=== PATIENT | female | born 1980 | race American Indian/Alaskan Native ===

== ENCOUNTER 2019-01-21 16:40 | Inpatient (IN) | payer OTHER ==
[2019-01-21] MEDS ORDERED: DUONEB *Not for PRN Use IH ONE (16:49)
--- NOTE | 2019-01-21 16:52 | Emergency Department Report ---
ED Shortness of Breath HPI - General Stated Complaint: ASTHMA Time Seen by Provider: 01/21/19 16:47 Source: patient, EMS Mode of arrival: Stretcher Limitations: No Limitations - History of Present Illness Initial Comments: Patient is a 38-year-old female that presents emergency room with complaints of asthma attack and difficult breathing and shortness of breath. Patient is bro ught in by EMS. Patient states her symptoms started yesterday but about 2 hours ago he became worse and states she is not able to breathe. Patient states her symptoms have improved since EMS giving her medications. Patient states she still having some shortness of breath and difficulty catching her breath. Patient states she still coughing and having wheezing. Patient states her cough is dry. Patient states she has had a history of asthma. Patient denies fever or chills. Denies chest pain. Report received from EMS. EMS states they gave her Medrol, albuterol and magnesium run. MD Complaint: shortness of breath, cough, "asthma attack" -: Sudden Severity: severe Consistency: constant Improves With: oxygen, rest, bronchodilators, medication Worsens With: exertion Known History Of: asthma Associated Symptoms: cough Treatments Prior to Arrival: oxygen, bronchodilator, other - Related Data Home Oxygen Therapy: No Home Medications Medication Instructions Recorded Confirmed Last Taken ALBUTEROL Inhaler (OR & NICU) 8.5 gram INHALATION PRN PRN 01/21/19 01/21/19 01/21/19 [ProAir HFA Inhaler] Bupropion HCl [Wellbutrin XL] 300 mg PO QHS 01/21/19 01/21/19 01/20/19 Escitalopram Oxalate [Lexapro] 20 mg PO QHS 01/21/19 01/21/19 01/20/19 traZODone [Desyrel] 200 mg PO QHS 01/21/19 01/21/19 01/20/19 Allergies Allergy/AdvReac Type Severity Reaction Status Date / Time No Known Allergies Allergy Unverified 01/21/19 17:03 ED Review of Systems ROS: Stated complaint: ASTHMA Other details as noted in HPI Constitutional: denies: chills, fever Eyes: denies: eye pain, eye discharge, vision change ENT: denies: ear pain, throat pain Respiratory: see HPI, cough, shortness of breath, SOB with exertion, SOB at rest, wheezing Cardiovascular: denies: chest pain, palpitations Endocrine: no symptoms reported Gastrointestinal: denies: abdominal pain, nausea, diarrhea Genitourinary: denies: urgency, dysuria, discharge Musculoskeletal: denies: back pain, joint swelling, arthralgia Skin: denies: rash, lesions Neurological: denies: headache, weakness, paresthesias Psychiatric: denies: anxiety, depression Hematological/Lymphatic: denies: easy bleeding, easy bruising ED Past Medical Hx - Past Medical History Previous Medical History?: Yes Hx Asthma: Yes - Surgical History Past Surgical History?: No - Family History Family history: no significant - Social History Smoking Status: Never Smoker Substance Use Type: None - Medications Home Medications: Home Medications Medication Instructions Recorded Confirmed Last Taken Type ALBUTEROL Inhaler (OR & NICU) 8.5 gram INHALATION PRN PRN 01/21/19 01/21/19 01/21/19 History [ProAir HFA Inhaler] Bupropion HCl [Wellbutrin XL] 300 mg PO QHS 01/21/19 01/21/19 01/20/19 History Escitalopram Oxalate [Lexapro] 20 mg PO QHS 01/21/19 01/21/19 01/20/19 History traZODone [Desyrel] 200 mg PO QHS 01/21/19 01/21/19 01/20/19 History ED Physical Exam - General Limitations: No Limitations General appearance: alert, in distress - Head Head exam: Present: atraumatic, normocephalic - Eye Eye exam: Present: normal appearance, PERRL Pupils: Present: normal accommodation - ENT ENT exam: Present: mucous membranes moist - Neck Neck exam: Present: normal inspection - Respiratory Respiratory exam: Present: respiratory distress, wheezes - Cardiovascular Cardiovascular Exam: Present: regular rate, normal rhythm. Absent: systolic murmur, diastolic murmur, rubs, gallop - GI/Abdominal GI/Abdominal exam: Present: soft, normal bowel sounds. Absent: distended, tenderness, guarding - Extremities Exam Extremities exam: Present: normal inspection - Back Exam Back exam: Present: normal inspection - Neurological Exam Neurological exam: Present: alert, oriented X3 - Psychiatric Psychiatric exam: Present: normal affect, normal mood - Skin Skin exam: Present: warm, dry, intact, normal color. Absent: rash ED Course Vital Signs 0701/21/19 01/21/19 17:00 17:06 17:17 Temperature 98.5 F Pulse Rate 103 H Pulse Rate [ 97 H 100 H Anterior] Respiratory 22 Rate Respiratory 19 19 Rate [Anterior] Blood Pressure 153/89 O2 Sat by Pulse 97 Oximetry 01/21/19 01/21/19 17:24 18:25 Temperature Pulse Rate Pulse Rate [ Anterior] Respiratory 22 Rate Respiratory Rate [Anterior] Blood Pressure O2 Sat by Pulse 94 Oximetry - Reevaluation(s) Reevaluation #1: Initial evaluation done. Patient will be given a DuoNeb. 01/21/19 16:45 Reevaluation #2: lungs reassessed. lungs sounds better. Patient off O2 for 20 minutes and O2 saturations 90%. Patient placed on 4 L and her current 2 saturation is 94%. Patient will be admitted to the hospitalist service. I discussed plan of care with patient. Patient agrees with plan of care. I discussed all results with patient. 01/21/19 18:22 - Consultations Consultation #1: Hospitalist consult for admission. Hospitalist to admit patient. 01/21/19 18:25 ED Medical Decision Making - Lab Data Result diagrams: 01/21/19 16:58 01/21/19 16:58 - EKG Data -: EKG Interpreted by Tn EKG shows normal: sinus rhythm, axis, intervals, QRS complexes, ST-T waves Rate: normal - Radiology Data Radiology results: report reviewed, image reviewed CHEST 1 VIEW INDICATION / CLINICAL INFORMATION: Dyspnea. Chest pain. COMPARISON: None available. FINDINGS: SUPPORT DEVICES: None. HEART / MEDIASTINUM: No significant abnormality. LUNGS / PLEURA: No significant pulmonary or pleural abnormality. No pneumothorax. ADDITIONAL FINDINGS: No significant additional findings. IMPRESSION: 1. No acute findings. - Medical Decision Making Patient is 38-year-old presents with complaints of shortness of breath and difficulty breathing. Patient found to be in status asthmaticus. Patient given multiple medications prior to arrival by EMS. Patient was given magnesium, Solu-Medrol and albuterol. Patient's DuoNeb was repeated in the ER. Patient and her lung sounds but still hypoxic. Patient found to have a oxygen saturation of 90% on room air. Patient on 4 L increased to 94. Patient admitted to the hospitalist service. Patient will require observation due to her clinical findings. Patient's labs are unremarkable. Patient's chest x-ray EKG is normal. - Differential Diagnosis status asthmaticus. Wheezing. Shortness of breath. Respiratory distress. Critical Care Time: Yes Critical care attestation.: If time is entered above; I have spent that time in minutes in the direct care of this critically ill patient, excluding procedure time. Critical Care Time: 45 minutes ED Disposition Clinical Impression: SOB (shortness of breath), Hypoxia, Difficulty breathing Status asthmaticus Qualifiers: Asthma severity: severe Asthma persistence: persistent Qualified Code(s): J45.52 - Severe persistent asthma with status asthmaticus Disposition: 09 OP ADMIT IP TO THIS HOSP Is pt being admited?: Yes Does the pt Need Aspirin: No Condition: Critical Time of Disposition: 18:23
[2019-01-21 17:22] LABS: Basophils % (Auto) 0.4 % (0.0-1.8); Eosinophils # (Auto) 0.6 K/mm3 (0.0-0.4); Eosinophils % (Auto) 5.4 % (0.0-4.3); Hemoglobin 13.4 gm/dl (10.1-14.3); Lymphocytes # (Auto) 1.6 K/mm3 (1.2-5.4); Lymphocytes % (Auto) 13.6 % (13.4-35.0); Mean Corpuscular HGB Conc 34 % (30-34); Mean Corpuscular Volume 91 fl (79-97); Monocytes # (Auto) 1.2 K/mm3 (0.0-0.8); Monocytes % (Auto) 9.9 % (0.0-7.3); Platelet Count 197 K/mm3 (140-440); Red Blood Count 4.39 M/mm3 (3.65-5.03); Red Cell Distribution Width 14.1 % (13.2-15.2)
[2019-01-21 18:05] LABS: Alanine Aminotransferase 19 units/L (7-56); BUN/Creatinine Ratio 11; Blood Urea Nitrogen 10 mg/dL (7-17); Calcium 8.5 mg/dL (8.4-10.2); Hemolysis Index 5
--- NOTE | 2019-01-21 18:20 | XRay Report ---
CHEST 1 VIEW INDICATION / CLINICAL INFORMATION: Dyspnea. Chest pain. COMPARISON: None available. FINDINGS: SUPPORT DEVICES: None. HEART / MEDIASTINUM: No significant abnormality. LUNGS / PLEURA: No significant pulmonary or pleural abnormality. No pneumothorax. ADDITIONAL FINDINGS: No significant additional findings. IMPRESSION: 1. No acute findings. Signer Name: Merlin Fisher MD Signed: 01/21/2019 6:16 PM Workstation Name: [id number]
[2019-01-21] MEDS ORDERED: ZOFRAN IV PRN (18:26)
[2019-01-21] MEDS ORDERED: SODIUM CHLORIDE FLUSH SYRINGE 10 ML IV PRN (18:26)
[2019-01-21] MEDS ORDERED: PROVENTIL IH PRN (18:26)
--- NOTE | 2019-01-21 18:29 | History and Physical Report ---
History of Present Illness Chief complaint: I cant breathe History of present illness: 38 YO Female with Asthma presents to ED for evaluation. Pt is unable to speak in complete sentences. Pt has experienced shortness of breath over the past 2 days with worsening symptoms over the past 1 day. Pt acknowledges increased nebulizer use without relief. EMS notified and upon arrival the patient was found to be in distress and placed on supplemental oxygen and transported to [facility]. Pt seen and evaluated in ED and found to have Status Asthmaticus as well as Acute Hypoxemic Respiratory Failure and treated with NIPPV, nebulizer therapy, and IV steroid therapy with mild improvement in symptoms. Pt admitted to medical floor. Pt denies fever, chills, CP, Palpitations, NVD, Trauma, BRBPR, Productive Cough, Skin Rash, Unintentional weight loss, night sweats. No prior admissions for review. No medication listed for reconciliation at time of admission. Past History Past Medical History: other (Asthma) Past Surgical History: No surgical history, Other (reviewed) Social history: single. denies: smoking, alcohol abuse, prescription drug abuse Family history: no significant family history (reviewed) Medications and Allergies Allergies Allergy/AdvReac Type Severity Reaction Status Date / Time No Known Allergies Allergy Unverified 01/21/19 17:03 Home Medications Medication Instructions Recorded Confirmed Last Taken Type ALBUTEROL Inhaler (OR & NICU) 01/21/19 01/21/19 History [ProAir HFA Inhaler] Bupropion HCl [Wellbutrin XL] 01/21/19 01/20/19 History Escitalopram Oxalate [Lexapro] 20 mg PO 01/21/19 01/20/19 History traZODone [Desyrel] 200 mg PO QHS 01/21/19 01/21/19 01/20/19 History Active Meds: Active Medications Acetaminophen (Tylenol) 650 mg PO Q4H PRN PRN Reason: Pain MILD(1-3)/Fever >100.5/ANGEL Albuterol (Proventil) 2.5 mg IH Q4HRT PRN PRN Reason: Shortness Of Breath Famotidine (Pepcid) 10 mg PO BID ROSS Azithromycin 500 mg/ Sodium (Chloride) 250 mls @ 250 mls/hr IV Q24HR ROSS; Protocol Methylprednisolone Sodium Succinate (Solu-Medrol) 40 mg IV Q8HR ROSS Ondansetron HCl (Zofran) 4 mg IV Q8H PRN PRN Reason: Nausea And Vomiting Sodium Chloride (Sodium Chloride Flush Syringe 10 Ml) 10 ml IV BID [facility] Sodium Chloride (Sodium Chloride Flush Syringe 10 Ml) 10 ml IV PRN PRN PRN Reason: LINE FLUSH Review of Systems Constitutional: no weight loss, no weight gain, no fever, no chills Ears, nose, mouth and throat: no ear pain, no ear discharge, no tinnitis, no decreased hearing, no nose pain Breasts: no change in shape, no swelling, no mass Cardiovascular: no chest pain, no orthopnea, no palpitations, no rapid/irregular heart beat, no edema Respiratory: shortness of breath, wheezing, no cough, no cough with sputum, no excessive sputum Gastrointestinal: no nausea, no vomiting, no diarrhea, no constipation Genitourinary Female: no pelvic pain, no flank pain Rectal: no pain, no incontinence, no bleeding Musculoskeletal: no neck stiffness, no neck pain, no shooting arm pain Integumentary: no rash, no pruritis, no redness, no sores, no wounds, no jaundice Neurological: no paralysis, no weakness, no parathesias, no numbness, no tingling Psychiatric: no anxiety, no memory loss, no change in sleep habits, no sleep disturbances, no insomnia, no hypersomnia Endocrine: no cold intolerance, no heat intolerance, no polyphagia, no excessive thirst, no polydipsia, no polyuria, no nocturia Hematologic/Lymphatic: no easy bruising, no easy bleeding Allergic/Immunologic: no urticaria, no allergic rhinitis, no wheezing Exam - Constitutional Vitals: Temp Pulse Resp BP Pulse Ox 98.5 F 100 H 22 153/89 97 01/21/19 17:00 01/21/19 17:17 01/21/19 17:24 01/21/19 17:00 01/21/19 17:00 General appearance: Present: mild distress - EENT Eyes: Present: PERRL ENT: hearing intact, clear oral mucosa - Neck Neck: Present: supple, normal ROM - Respiratory Respiratory effort: labored Respiratory: bilateral: diminished, wheezing - Cardiovascular Heart Sounds: Present: S1 & S2. Absent: rub, click - Extremities Extremities: pulses symmetrical, No edema Peripheral Pulses: within normal limits - Abdominal General gastrointestinal: Present: soft, non-tender, non-distended, normal bowel sounds Female genitourinary: Present: normal - Integumentary Integumentary: Present: clear, warm, dry - Musculoskeletal Musculoskeletal: gait normal, strength equal bilaterally - Psychiatric Psychiatric: agitated - Neurologic Neurologic: CNII-XII intact, moves all extremities Results - Labs CBC & Chem 7: 01/21/19 16:58 01/21/19 16:58 Labs: Abnormal lab results 01/21/19 01/21/19 Range/Units 16:58 16:58 WBC 11.9 H (4.5-11.0) K/mm3 [place] % (Auto) 9.9 H (0.0-7.3) % Eos % (Auto) 5.4 H (0.0-4.3) % Harris # 1.2 H (0.0-0.8) K/mm3 Eos # 0.6 H (0.0-0.4) K/mm3 Seg Neutrophils % 70.7 H (40.0-70.0) % Seg Neutrophils # 8.4 H (1.8-7.7) K/mm3 Chloride 109.4 H (98-107) mmol/L Glucose 125 H (65-100) mg/dL Assessment and Plan - Patient Problems (1) Respiratory failure Current Visit: Yes Status: Acute Qualifiers: Chronicity: acute Respiratory failure complication: hypoxia Qualified Code(s): J96.01 - Acute respiratory failure with hypoxia Plan to address problem: Chest x ray, ABG, supplemental oxygen, NIPPV as clinically indicated, CBC, CMP, pulse oximetry, (2) Status asthmaticus Current Visit: No Status: Acute Qualifiers: Asthma severity: severe Asthma persistence: persistent Qualified Code(s): J45.52 - Severe persistent asthma with status asthmaticus Plan to address problem: Nebulizer therapy, IV steroid therapy, IV antibiotic therapy, Iv magnesium therapy, (3) DVT prophylaxis Current Visit: Yes Status: Acute Plan to address problem: SCD to BLE while in bed. prophylactic lovenox
[2019-01-21] MEDS ORDERED: MAGNESIUM SULFATE 2GM/50ML 2 GM/50 ML BAG IV ONE (18:30)
[2019-01-21] MEDS ORDERED: SOLU-Medrol IV ONE (18:31)
[2019-01-21] MEDS: ZITHROMAX 500 MG in NACL 0.9% 250ML 250 ML IV SCH (19:30)
--- NOTE | 2019-01-21 19:37 | Cat Scan Report ---
CTA CHEST WITH IV CONTRAST, 01/21/2019 INDICATION: Chest pain. Shortness of breath. TECHNIQUE: Axial CT images were obtained through the chest after injection of IV contrast. Coronal oblique 2-D reconstruction images were produced. 3 plane MIP reconstruction images were produced at an [employer] workstation. All CTs at this facility utilize dose reduction techniques including automated expos ure control, iterative reconstruction and weight based dosing when appropriate to reduce patient radi ation dose to as low as reasonable achievable. COMPARISON: Chest radiograph, 01/21/2019 FINDINGS: Evaluation of the pulmonary arteries demonstrates no evidence of central or segmental filling defects to suggest pulmonary embolism. The heart is normal in size. Evaluation of the lung parenchyma shows no evidence of focal airspace disease or pleural effusion. Limited imaging of the upper abdomen demonstrates no evidence of acute intra-abdominal process. There has been previous cholecystectomy. Evaluation of bony structures demonstrates no evidence of acute bony abnormality. IMPRESSION: 1. No evidence of pulmonary embolism or acute parenchymal process. Signer Name: Barbie Ramirez MD Signed: 01/21/2019 7:32 PM Workstation Name: [id number]
[2019-01-21 20:50] LABS: Amphetamine Screen,Urine PRESUMPTIVE NEGATIVE; Benzodiazepines Screen,Urine PRESUMPTIVE NEGATIVE; Cannabinoid Screen,Urine PRESUMPTIVE NEGATIVE; Methadone Screen,Urine PRESUMPTIVE NEGATIVE; Opiate Screen,Urine PRESUMPTIVE NEGATIVE
[2019-01-21 21:16] LABS: Cocaine Screen,Urine PRESUMPTIVE POSITIVE
[2019-01-21] MEDS: SODIUM CHLORIDE FLUSH SYRINGE 10 ML IV SCH (23:28)
[2019-01-21] MEDS: DESYREL PO SCH (23:28)
[2019-01-21] MEDS: PEPCID PO SCH (23:28)
[2019-01-21] MEDS: LOVENOX SUB-Q SCH (23:28)
[2019-01-21] MEDS: SOLU-Medrol IV SCH (23:29)
[2019-01-22] MEDS ORDERED: WELLBUTRIN XL PO SCH (02:59)
[2019-01-22] MEDS: SOLU-Medrol IV SCH ×3 (05:20→21:09)
[2019-01-22] MEDS: TYLENOL PO PRN ×2 (05:20→13:43)
[2019-01-22 06:51] LABS: Hemoglobin 13.6 gm/dl (10.1-14.3); Mean Corpuscular HGB Conc 32 % (30-34); Mean Corpuscular Volume 92 fl (79-97); Platelet Count 260 K/mm3 (140-440); Red Blood Count 4.58 M/mm3 (3.65-5.03); Red Cell Distribution Width 14.3 % (13.2-15.2)
[2019-01-22 07:15] LABS: Alanine Aminotransferase 23 units/L (7-56); Albumin 4.2 g/dL (3.9-5); BUN/Creatinine Ratio 10; Blood Urea Nitrogen 9 mg/dL (7-17); Calcium 8.8 mg/dL (8.4-10.2); Hemolysis Index 18
[2019-01-22] MEDS ORDERED: PROAIR IH PRN (07:45)
[2019-01-22 08:29] LABS: Basophils % (Manual) 0 % (0.0-1.8); Eosinophils % (Manual) 0 % (0.0-4.3); Total Cells Counted 100
[2019-01-22 08:30] LABS: Platelet Estimate Consistent w Auto; RBC Morphology Normal
--- NOTE | 2019-01-22 09:01 | Progress Note ---
Assessment and Plan /Acute hypoxic Respiratory failure Due to acute asthma exacerbation Continue supplemental oxygen, scheduled nebs, steroids, NIPPV as clinically indicated, / Status asthmaticus Nebulizer therapy, IV steroid therapy, IV antibiotic therapy, Iv magnesium therapy, / History of depression Continue Wellbutrin and Lexapro home dose /Substance abuse, UDS +ve for cocaine, counselled /DVT prophylaxis SCD to BLE while in bed. prophylactic lovenox Brief history: 38 YO Female with Asthma presents to ED by EMS for evaluation of shortness of breath over the past 2 days. Pt acknowledges increased nebulizer use without relief. EMS notified and upon arrival the patient was found to be in distress and placed on supplemental oxygen and transported to [facility]. Pt seen and evaluated in ED and found to have Status Asthmaticus as well as Acute Hypoxemic Respiratory Failure and treated with NIPPV, nebulizer therapy, and IV steroid therapy with mild improvement in symptoms. Pt admitted to medical floor. Physical exam: GENERAL: well-developed and well-nourished female lying on bed appeared to be in no discomfort. HEENT: Normocephalic. Atraumatic. No conjunctival congestion or icterus. Patient has moist mucous membranes. NECK: Supple. Trachea midline. CHEST/LUNGS: Diffuse wheezes auscultated bilaterally, breathing nonlabored. No crackles or rhonchi. HEART/CARDIOVASCULAR: Regular in rate and rhythm. S1 and S2 positive. ABDOMEN: Abdomen is soft, nontender. Patient has normal bowel sounds. SKIN: There is no rash. Warm and dry. NEURO: No focal motor deficit. Follows command. MUSCULOSKELETAL: No joint effusion or tenderness. EXTRIMITY: No edema, no cyanosis or clubbing. PSYCH: Cooperative. Subjective Date of service: 01/22/19 Objective - Constitutional Vitals: Vital Signs - 12hr 01/22/19 01/22/19 01/22/19 03:04 03:08 05:04 Temperature 97.5 F L Pulse Rate 90 Pulse Rate [ 95 H Anterior] Respiratory 28 H Rate Respiratory 20 Rate [Anterior] Blood Pressure 122/85 [Right] O2 Sat by Pulse 98 100 Oximetry - Labs CBC & Chem 7: 01/22/19 04:57 01/22/19 04:57 Labs: Abnormal lab results 01/21/19 01/21/19 01/21/19 Range/Units 16:58 16:58 19:53 WBC 11.9 H (4.5-11.0) K/mm3 [place] % (Auto) 9.9 H (0.0-7.3) % Eos % (Auto) 5.4 H (0.0-4.3) % [place] # 1.2 H (0.0-0.8) K/mm3 Eos # 0.6 H (0.0-0.4) K/mm3 Seg Neutrophils % 70.7 H (40.0-70.0) % Seg Neuts % (Manual) (40.0-70.0) % Lymphocytes % (Manual) (13.4-35.0) % Seg Neutrophils # 8.4 H (1.8-7.7) K/mm3 Seg Neutrophils # Man (1.8-7.7) K/mm3 Lymphocytes # (Manual) (1.2-5.4) K/mm3 POC ABG pO2 62 L (80-105) Chloride 109.4 H (98-107) mmol/L Carbon Dioxide (22-30) mmol/L Glucose 125 H (65-100) mg/dL 01/22/19 01/22/19 Range/Units 04:57 04:57 WBC 13.2 H (4.5-11.0) K/mm3 [place] % (Auto) (0.0-7.3) % Eos % (Auto) (0.0-4.3) % [place] # (0.0-0.8) K/mm3 Eos # (0.0-0.4) K/mm3 Seg Neutrophils % (40.0-70.0) % Seg Neuts % (Manual) 89.0 H (40.0-70.0) % Lymphocytes % (Manual) 8.0 L (13.4-35.0) % Seg Neutrophils # (1.8-7.7) K/mm3 Seg Neutrophils # Man 11.7 H (1.8-7.7) K/mm3 Lymphocytes # (Manual) 1.1 L (1.2-5.4) K/mm3 POC ABG pO2 (80-105) Chloride 108.7 H (98-107) mmol/L Carbon Dioxide 21 L (22-30) mmol/L Glucose 184 H (65-100) mg/dL
[2019-01-22] MEDS: DUONEB *Not for PRN Use IH SCH ×3 (09:05→20:21)
[2019-01-22] MEDS: ZITHROMAX 500 MG in NACL 0.9% 250ML 250 ML IV SCH (10:56)
[2019-01-22] MEDS: SODIUM CHLORIDE FLUSH SYRINGE 10 ML IV SCH ×2 (10:57→21:09)
[2019-01-22] MEDS: PEPCID PO SCH ×2 (10:57→21:08)
[2019-01-22] MEDS ORDERED: NORCO 5/325 PO PRN (18:23)
[2019-01-22] MEDS: WELLBUTRIN XL PO SCH (21:08)
[2019-01-22] MEDS: LEXAPRO PO SCH (21:08)
[2019-01-22] MEDS: DESYREL PO SCH (21:09)
[2019-01-22] MEDS ORDERED: NON-FORMULARY (Escitalopram Oxalate [Lexapro] 20 MG) PO SCH (22:00)
[2019-01-22] MEDS ORDERED: NON-FORMULARY (Bupropion Hcl [Wellbutrin Xl] 300 MG) PO SCH (22:00)
[2019-01-22] MEDS: LOVENOX SUB-Q SCH (22:07)
[2019-01-23] MEDS: DUONEB *Not for PRN Use IH SCH ×5 (02:22→20:11)
[2019-01-23] MEDS: SOLU-Medrol IV SCH (05:13)
[2019-01-23] MEDS: ZITHROMAX 500 MG in NACL 0.9% 250ML 250 ML IV SCH (11:38)
[2019-01-23] MEDS: PEPCID PO SCH ×2 (11:38→21:14)
[2019-01-23] MEDS: SODIUM CHLORIDE FLUSH SYRINGE 10 ML IV SCH ×2 (11:39→21:13)
--- NOTE | 2019-01-23 13:44 | Progress Note ---
Assessment and Plan /Acute hypoxic Respiratory failure Due to acute asthma exacerbation Continue supplemental oxygen, scheduled nebs, steroids, NIPPV as clinically indicated, / Status asthmaticus Nebulizer therapy, IV steroid therapy, IV antibiotic therapy, Iv magnesium therapy, Increase steroid dose, change abx to levaquin / History of depression Continue Wellbutrin and Lexapro home dose /Substance abuse, UDS +ve for cocaine, counselled /DVT prophylaxis SCD to BLE while in bed. prophylactic lovenox Brief history: 38 YO Female with Asthma presents to ED by EMS for evaluation of shortness of breath over the past 2 days. Pt acknowledges increased nebulizer use without relief. EMS notified and upon arrival the patient was found to be in distress and placed on supplemental oxygen and transported to [facility]. Pt seen and evaluated in ED and found to have Status Asthmaticus as well as Acute Hypoxemic Respiratory Failure and treated with NIPPV, nebulizer therapy, and IV steroid therapy with mild improvement in symptoms. Pt admitted to medical floor. Physical exam: GENERAL: well-developed and well-nourished female lying on bed appeared to be in no discomfort. HEENT: Normocephalic. Atraumatic. No conjunctival congestion or icterus. Patient has moist mucous membranes. NECK: Supple. Trachea midline. CHEST/LUNGS: Diffuse wheezes auscultated bilaterally, breathing nonlabored. No crackles or rhonchi. HEART/CARDIOVASCULAR: Regular in rate and rhythm. S1 and S2 positive. ABDOMEN: Abdomen is soft, nontender. Patient has normal bowel sounds. SKIN: There is no rash. Warm and dry. NEURO: No focal motor deficit. Follows command. MUSCULOSKELETAL: No joint effusion or tenderness. EXTRIMITY: No edema, no cyanosis or clubbing. PSYCH: Cooperative. Subjective Date of service: 01/23/19 Interval history: Patient seen and examined Still c/o diffuse wheezes, and cough Objective - Constitutional Vitals: Vital Signs - 12hr 01/23/19 01/23/19 01/23/19 05:17 05:21 07:15 Temperature 98.0 F Pulse Rate 90 Pulse Rate [ 85 79 Anterior Bilateral Throughout] Pulse Rate [ 88 Anterior] Respiratory 18 Rate Respiratory 20 18 Rate [Anterior Bilateral Throughout] Respiratory 18 Rate [Anterior] Blood Pressure 142/82 O2 Sat by Pulse 93 Oximetry 01/23/19 13:01 Temperature 98.3 F Pulse Rate 96 H Pulse Rate [ Anterior Bilateral Throughout] Pulse Rate [ Anterior] Respiratory 16 Rate Respiratory Rate [Anterior Bilateral Throughout] Respiratory Rate [Anterior] Blood Pressure 153/103 O2 Sat by Pulse 96 Oximetry - Labs CBC & Chem 7: 01/22/19 04:57 01/22/19 04:57
[2019-01-23] MEDS ORDERED: LEVAQUIN 750MG/150ML 750 MG/150 ML BAG IV SCH (14:00)
[2019-01-23] MEDS ORDERED: BENADRYL PO NR ×2 (15:00)
[2019-01-23] MEDS ORDERED: SOLU-Medrol IV SCH (18:00)
[2019-01-23] MEDS: WELLBUTRIN XL PO SCH (21:13)
[2019-01-23] MEDS: LOVENOX SUB-Q SCH (21:13)
[2019-01-23] MEDS: LEXAPRO PO SCH (21:13)
[2019-01-23] MEDS: DESYREL PO SCH (21:14)
[2019-01-23] MEDS: TYLENOL PO PRN (21:22)
[2019-01-24] MEDS: SOLU-Medrol IV SCH ×3 (00:37→12:24)
[2019-01-24] MEDS: DUONEB *Not for PRN Use IH SCH ×3 (03:00→13:05)
[2019-01-24] MEDS: PEPCID PO SCH (09:18)
[2019-01-24] MEDS: SODIUM CHLORIDE FLUSH SYRINGE 10 ML IV SCH (09:20)
--- NOTE | 2019-01-24 11:43 | Discharge Summary ---
Providers - Providers Date of Admission: 01/21/19 18:26 Date of discharge: 01/24/19 Attending physician: ARY JURADO [facility] Condition: Critical Hospital course: Discharge diagnosis: /Acute hypoxic Respiratory failure Due to acute asthma exacerbation Continue supplemental oxygen, scheduled nebs, steroids, NIPPV as clinically indicated, / Status asthmaticus Nebulizer therapy, IV steroid therapy, IV antibiotic therapy, Iv magnesium therapy, Increase steroid dose, change abx to levaquin / History of depression Continue Wellbutrin and Lexapro home dose /Substance abuse, UDS +ve for cocaine, counselled /leukocytosis, due to steroid /DVT prophylaxis SCD to BLE while in bed. prophylactic lovenox Brief history: 38 YO Female with Asthma presents to ED by EMS for evaluation of shortness of breath over the past 2 days. Pt acknowledges increased nebulizer use without relief. EMS notified and upon arrival the patient was found to be in distress and placed on supplemental oxygen and transported to [facility]. Pt seen and evaluated in ED and found to have Status Asthmaticus as well as Acute Hypoxemic Respiratory Failure and treated with NIPPV, nebulizer therapy, and IV steroid therapy with mild improvement in symptoms. Pt admitted to medical floor. Physical exam: GENERAL: well-developed and well-nourished female lying on bed appeared to be in no discomfort. HEENT: Normocephalic. Atraumatic. No conjunctival congestion or icterus. Patient has moist mucous membranes. NECK: Supple. Trachea midline. CHEST/LUNGS: Diffuse wheezes auscultated bilaterally, breathing nonlabored. No crackles or rhonchi. HEART/CARDIOVASCULAR: Regular in rate and rhythm. S1 and S2 positive. ABDOMEN: Abdomen is soft, nontender. Patient has normal bowel sounds. SKIN: There is no rash. Warm and dry. NEURO: No focal motor deficit. Follows command. MUSCULOSKELETAL: No joint effusion or tenderness. EXTRIMITY: No edema, no cyanosis or clubbing. PSYCH: Cooperative. Disposition: DC-01 TO HOME OR SELFCARE Time spent for discharge: 34 minutes Core Measure Documentation - Palliative Care Palliative Care/ Comfort Measures: Not Applicable - Core Measures Any of the following diagnoses?: none Exam - Constitutional Vitals: Temp Pulse Resp BP Pulse Ox 99.0 F 88 20 153/92 94 01/24/19 06:15 01/24/19 07:09 01/24/19 07:09 01/24/19 06:15 01/24/19 06:15 Plan Activity: advance as tolerated Weight Bearing Status: Weight Bear as Tolerated Diet: low fat, low salt Durable Medical Equipment Needed Upon Discharge: Nebulizer Follow up with: DARRELL CAMPUZANO MD [Primary Care Provider] - 7 Days Prescriptions: predniSONE [Deltasone] 50 mg PO QDAY #7 tab levoFLOXacin [Levaquin] 750 mg PO QDAY #3 tablet ALBUTEROL Inhaler (OR & NICU) [ProAir HFA Inhaler] 8.5 gram INHALATION PRN PRN 30 Days #1 vial PRN Reason: Shortness Of Breath Lisinopril [Zestril TAB] 10 mg PO QDAY #30 tablet
[2019-01-24] MEDS ORDERED: ZESTRIL PO SCH (12:00)
[2019-01-24 13:01] VITALS: BP 168/107
== END 2019-01-24 13:24 | disposition home or self-care (01) | DRG 189 ==
LOC: ED 16:40 → 3A 18:26
PROVIDERS: ADMIT Internal Medicine; ATTEND Internal Medicine
PROC: 4A033R1 Measurement of Arterial Saturation, Peripheral, Percutaneous Approach (ICD-10-PCS; principal; 2019-01-21)
DX: J96.01 Acute respiratory failure with hypoxia (principal); J45.52 Severe persistent asthma with status asthmaticus; F14.10 Cocaine abuse, uncomplicated; F32.9 Major depressive disorder, single episode, unspecified; Z79.51 Long term (current) use of inhaled steroids; Z71.51 Drug abuse counseling and surveillance of drug abuser
CPT/HCPCS: 36415; 36600; 71045; 71275; 80053; 80307; 82140; 82803; 84703; 85007; 85025; 85379; 93005; 93010; 94640; 94644; 94760; 96365; 96367; G0378; J0456; J1650; J1956; J2920; J3475; J7050; Q9967

== ENCOUNTER 2019-03-06 14:50 | Emergency (ER) | payer OTHER ==
[2019-03-06 14:57] VITALS: BP 173/95
[2019-03-06] MEDS ORDERED: DECADRON IM ONE (14:59)
[2019-03-06] MEDS ORDERED: DUONEB *Not for PRN Use IH ONE (14:59)
--- NOTE | 2019-03-06 15:02 | Event Note ---
ED Screening Note Date of service: 03/06/19 Time: 14:55 ED Screening Note: 38 y old female with pmh of asthma presents with mild resp distress states does not have medication This initial assessment/diagnostic orders/clinical plan/treatment(s) is/are subject to change based on patients health status, clinical progression and re- assessment by fellow clinical providers in the ED. Further treatment and workup at subsequent clinical providers discretion. Patient/guardian urged not to elope from the ED as their condition may be serious if not clinically assessed and managed. Initial orders include:
[2019-03-06] MEDS ORDERED: ATROVENT IH ONE (15:10)
[2019-03-06] MEDS ORDERED: PROVENTIL IH ONE (15:10)
--- NOTE | 2019-03-06 16:29 | Emergency Department Report ---
ED Shortness of Breath HPI - General Chief Complaint: Dyspnea/Respdistress Stated Complaint: ASTHMA ATTACK Time Seen by Provider: 03/06/19 14:55 Source: patient Mode of arrival: Ambulatory Limitations: No Limitations - History of Present Illness Initial Comments: Patient is a 38-year-old black female who has a history of moderate asthma who is presenting with asthma exacerbation. Patient states wheezing has been present for approximately a week. She does not have an inhaler or prednisone at home. On her last admission 2 months ago she was given prescription lost them. Patient states she has had a cough which is nonproductive. She denies any fevers chills diarrhea so throat or neck stiffness at this time. - Related Data Home Medications Medication Instructions Recorded Confirmed Last Taken Bupropion HCl [Wellbutrin XL] 300 mg PO QHS 01/21/19 01/21/19 01/20/19 Escitalopram Oxalate [Lexapro] 20 mg PO QHS 01/21/19 01/21/19 01/20/19 traZODone [Desyrel] 200 mg PO QHS 01/21/19 01/21/19 01/20/19 Previous Rx's Medication Instructions Recorded Last Taken Type ALBUTEROL Inhaler (OR & NICU) 8.5 gram INHALATION PRN PRN 30 01/24/19 Unknown Rx [ProAir HFA Inhaler] Days #1 vial Lisinopril [Zestril TAB] 10 mg PO QDAY #30 tablet 01/24/19 Unknown Rx levoFLOXacin [Levaquin] 750 mg PO QDAY #3 tablet 01/24/19 Unknown Rx predniSONE [Deltasone] 50 mg PO QDAY #7 tab 01/24/19 Unknown Rx ALBUTEROL Inhaler (OR & NICU) 2 puff IH QID PRN #1 inhalation 03/06/19 Unknown Rx [ProAir HFA Inhaler] Benzonatate [Tessalon Perles] 100 mg PO Q8HR #10 capsule 03/06/19 Unknown Rx predniSONE [Deltasone] 20 mg PO QDAY #5 tab 03/06/19 Unknown Rx Allergies Allergy/AdvReac Type Severity Reaction Status Date / Time No Known Allergies Allergy Unverified 01/21/19 17:03 ED Review of Systems ROS: Stated complaint: ASTHMA ATTACK Other details as noted in HPI Comment: All other systems reviewed and negative ED Past Medical Hx - Past Medical History Previous Medical History?: Yes Hx Asthma: Yes - Surgical History Past Surgical History?: No - Social History Smoking Status: Never Smoker Substance Use Type: None - Medications Home Medications: Home Medications Medication Instructions Recorded Confirmed Last Taken Type Bupropion HCl [Wellbutrin XL] 300 mg PO QHS 01/21/19 01/21/19 01/20/19 History Escitalopram Oxalate [Lexapro] 20 mg PO QHS 01/21/19 01/21/19 01/20/19 History traZODone [Desyrel] 200 mg PO QHS 01/21/19 01/21/19 01/20/19 History ALBUTEROL Inhaler (OR & NICU) 8.5 gram INHALATION PRN PRN 30 01/24/19 Unknown Rx [ProAir HFA Inhaler] Days #1 vial Lisinopril [Zestril TAB] 10 mg PO QDAY #30 tablet 01/24/19 Unknown Rx levoFLOXacin [Levaquin] 750 mg PO QDAY #3 tablet 01/24/19 Unknown Rx predniSONE [Deltasone] 50 mg PO QDAY #7 tab 01/24/19 Unknown Rx ALBUTEROL Inhaler (OR & NICU) 2 puff IH QID PRN #1 inhalation 03/06/19 Unknown Rx [ProAir HFA Inhaler] Benzonatate [Tessalon Perles] 100 mg PO Q8HR #10 capsule 03/06/19 Unknown Rx predniSONE [Deltasone] 20 mg PO QDAY #5 tab 03/06/19 Unknown Rx ED Physical Exam - General Limitations: No Limitations General appearance: alert, in no apparent distress - Head Head exam: Present: atraumatic, normocephalic - Eye Eye exam: Present: normal appearance - ENT ENT exam: Present: mucous membranes moist - Neck Neck exam: Present: normal inspection - Respiratory Respiratory exam: Present: normal lung sounds bilaterally, wheezes. Absent: r espiratory distress, rales, rhonchi, stridor - Cardiovascular Cardiovascular Exam: Present: regular rate, normal rhythm, normal heart sounds. Absent: systolic murmur, diastolic murmur, rubs, gallop - GI/Abdominal GI/Abdominal exam: Present: soft, normal bowel sounds. Absent: distended, tenderness, guarding, rebound - Extremities Exam Extremities exam: Present: normal inspection - Back Exam Back exam: Present: normal inspection - Neurological Exam Neurological exam: Present: alert, oriented X3 - Psychiatric Psychiatric exam: Present: normal affect, normal mood - Skin Skin exam: Present: warm, dry, intact, normal color. Absent: rash ED Course Vital Signs 03/06/19 03/06/19 14:55 15:06 Temperature 98.3 F Pulse Rate 94 H Respiratory 18 17 Rate Blood Pressure 173/95 O2 Sat by Pulse 98 Oximetry ED Medical Decision Making - Medical Decision Making Received a hour-long neb treatment and is feeling much improved. Her wheezing has resolved and the patient be discharged home with prescriptions. Critical care attestation.: If time is entered above; I have spent that time in minutes in the direct care of this critically ill patient, excluding procedure time. ED Disposition Clinical Impression: Asthma Qualifiers: Asthma severity: moderate Asthma persistence: persistent Asthma complication type: with acute exacerbation Qualified Code(s): J45.41 - Moderate persistent asthma with (acute) exacerbation Disposition: DC-01 TO HOME OR SELFCARE Is pt being admited?: No Does the pt Need Aspirin: No Condition: Stable Instructions: Asthma (ED) Referrals: PRIMARY CARE, [Primary Care Provider] - 3-5 Days Time of Disposition: 16:28
== END 2019-03-06 16:55 | disposition home or self-care (01) ==
LOC: ED 14:50
DX: J45.909 Unspecified asthma, uncomplicated (principal); Z79.899 Other long term (current) drug therapy
CPT/HCPCS: 94640; 96372; 99282; J1100; 94644